=== PATIENT | female | born 1965 ===

== ENCOUNTER 2018-10-08 13:43 | Emergency (ER) | payer SELFPAY ==
[2018-10-08 13:54] VITALS: BP 145/67; PULSE 64; RESP 18; TEMP 97.7; O2SAT 97; BMI 24.0
[2018-10-08] MEDS ORDERED: Tdap Vaccine 0.5 ml Vial (10-64 yrs) IM ONE (14:15)
--- NOTE | 2018-10-08 14:21 | ED PDOC ---
HPI: Trauma/Fall - HPI Time Seen by Provider: 10/08/18 14:15 Chief Complaint (Nursing): Trauma Chief Complaint (Provider): Facial Injury History Per: Patient History/Exam Limitations: no limitations Injury Occurred (Timing): Hours Ago: (x1) Additional Complaint(s): 53 year old female presents to the ED for evaluation of moderate pain and swelling to her face after a rubber resistance band hit her face while working out one hour prior to arrival. Patient denies any loss of consciousness, anticoagulant use, and states she is unsure of her last tetanus booster. PMD: cannot recall Past Medical History Reviewed: Historical Data, Nursing Documentation, Vital Signs Vital Signs: Last Vital Signs Temp 97.7 F 10/08/18 13:53 Pulse 64 10/08/18 13:53 Resp 18 10/08/18 13:53 BP 145/67 10/08/18 13:53 Pulse Ox 97 10/08/18 13:53 - Medical History PMH: Hypercholesterolemia Other PMH: thyroid illness - Surgical History Surgical History: Tonsillectomy - Family History Family History: States: Unknown Family Hx - Social History Current smoker - smoking cessation education provided: No Alcohol: None Drugs: Denies - Immunization History Hx Tetanus Toxoid Vaccination: No (will update this visit) - Home Medications Home Medications: Ambulatory Orders Medication Instructions Recorded RX: Naproxen 375 mg PO Q8 PRN #21 tablet 10/08/18 RX: Pseudoephedrine [Sudafed Tab] 60 mg PO Q6 PRN #12 tab 10/08/18 - Allergies Allergies/Adverse Reactions: Allergies Allergy/AdvReac Type Severity Reaction Status Date / Time No Known Allergies Allergy Verified 10/08/18 14:06 Review of Systems ROS Statement: Except As Marked, All Systems Reviewed And Found Negative ENT: Positive for: Other (facial pain and swelling) Neurological: Negative for: Other (loss of consciousness) Physical Exam - Reviewed Nursing Documentation Reviewed: Yes Vital Signs Reviewed: Yes - Physical Exam Appears: Positive for: No Acute Distress Head Exam: Positive for: ATRAUMATIC, NORMAL INSPECTION, NORMOCEPHALIC Skin: Positive for: Normal Color, Warm Eye Exam: Positive for: Normal appearance, EOMI, PERRL ENT: Positive for: Other (4mm abrasion noted to nasal bridge with moderate swelling of nose involving left maxillary region of face; no septal hematoma noted) Neck: Positive for: Normal, Painless ROM Cardiovascular/Chest: Positive for: Regular Rate, Rhythm Respiratory: Positive for: Normal Breath Sounds. Negative for: Respiratory Distress Neurologic/Psych: Positive for: Alert, Oriented (x3). Negative for: Motor/Sensory Deficits - ECG O2 Sat by Pulse Oximetry: 97 (RA) Pulse Ox Interpretation: Normal - Progress ED Course And Treament: IMPRESSION: 1. Mild diastasis of the right nasal maxillary suture is appreciate without definitive nasal bone fracture identified. Bilateral nasal soft tissue edema seen anteriorly, right greater than left extending into the medial bilateral periorbital soft tissues somewhat. Orbits are otherwise unremarkable appearing. 2. Facial bones are otherwise unremarkable as well as local soft tissues. D/W FAMILY. F/U WITH DR. SORENSEN GIVEN. ADVISED ICE AND ANTI INFLAMMATORY FOR PAIN CONTROL. Medical Decision Making Medical Decision Making: Time: 1414 Initial Impression: facial injury Initial Plan: --CT orbits/facials w/o contrast --Tetanus booster --Tylenol 975mg PO CT FINDINGS: NASAL BONES: There is mild diastasis of the right nasal maxillary suture without definitive fracture of the nasal bones appreciated bilaterally. Limited diffuse overlying soft tissue edema is seen bilaterally. ORBITS: Normal fracture appreciated. Limited bilateral medial periorbital soft tissue edema is seen at the level of the nasal bridge, right greater than left. No postseptal edema. The orbits otherwise unremarkable appearing. PARANASAL SINUSES/ MASTOIDS: Clear. MAXILLA: Unremarkable. MANDIBLE/ TEMPOROMANDIBULAR JOINTS: Unremarkable. SKULL BASE: Unremarkable. TEMPORAL BONES: Middle ears and mastoid grossly unremarkable. OTHER FINDINGS: Shotty incidental bilateral submandibular and submental lymph nodes are identified as well as the bilateral jugular digastric distributions in the upper neck. IMPRESSION: 1. Mild diastasis of the right nasal maxillary suture is appreciate without definitive nasal bone fracture identified. Bilateral nasal soft tissue edema seen anteriorly, right greater than left extending into the medial bilateral periorbital soft tissues somewhat. Orbits are otherwise unremarkable appearing. 2. Facial bones are otherwise unremarkable as well as local soft tissues. Scribe Attestation: Documented by Hannah Camejo, acting as a scribe for Jolene Burton PA-C. Provider Scribe Attestation: All medical record entries made by the Scribe were at my direction and personally dictated by me. I have reviewed the chart and agree that the record accurately reflects my personal performance of the history, physical exam, medical decision making, and the department course for this patient. I have also personally directed, reviewed, and agree with the discharge instructions and disposition. Disposition - Clinical Impression Clinical Impression: Nasal injury - Patient ED Disposition Is Patient to be Admitted: No - Disposition Referrals: Chito Sorensen MD [Staff Provider] - Disposition: Routine/Home Disposition Time: 16:03 Condition: FAIR Prescriptions: RX: Naproxen 375 mg PO Q8 PRN #21 tablet PRN Reason: Pain, Moderate (4-7) RX: Pseudoephedrine [Sudafed Tab] 60 mg PO Q6 PRN #12 tab PRN Reason: Nasal Congestion Instructions: Contusion (DC) Forms: [facility] ED School/Work Excuse
--- NOTE | 2018-10-08 15:30 | CT ---
Date of service: 10/08/2018 PROCEDURE: CT MAXILLOFACIAL BONES WITHOUT CONTRAST HISTORY: r/o facial fx COMPARISON: None available. TECHNIQUE: Contiguous axial CT images of the maxillofacial bones were obtained. Coronal and sagittal reformats were generated. Radiation dose: Total exam DLP = 793.07 mGy-cm. This CT exam was performed using one or more of the following dose reduction techniques: Automated exposure control, adjustment of the mA and/or kV according to patient size, and/or use of iterative reconstruction technique. FINDINGS: NASAL BONES: There is mild diastasis of the right nasal maxillary suture without definitive fracture of the nasal bones appreciated bilaterally. Limited diffuse overlying soft tissue edema is seen bilaterally. ORBITS: Normal fracture appreciated. Limited bilateral medial periorbital soft tissue edema is seen at the level of the nasal bridge, right greater than left. No postseptal edema. The orbits otherwise unremarkable appearing. PARANASAL SINUSES/ MASTOIDS: Clear. MAXILLA: Unremarkable. MANDIBLE/ TEMPOROMANDIBULAR JOINTS: Unremarkable. SKULL BASE: Unremarkable. TEMPORAL BONES: Middle ears and mastoid grossly unremarkable. OTHER FINDINGS: Shotty incidental bilateral submandibular and submental lymph nodes are identified as well as the bilateral jugular digastric distributions in the upper neck. IMPRESSION: 1. Mild diastasis of the right nasal maxillary suture is appreciate without definitive nasal bone fracture identified. Bilateral nasal soft tissue edema seen anteriorly, right greater than left extending into the medial bilateral periorbital soft tissues somewhat. Orbits are otherwise unremarkable appearing. 2. Facial bones are otherwise unremarkable as well as local soft tissues.
== END 2018-10-08 16:15 | disposition home or self-care (01) ==
LOC: H.ER 13:43
DX: S09.92XA Unspecified injury of nose, initial encounter (principal); W22.8XXA Striking against or struck by other objects, initial encounter; Y99.0 Civilian activity done for income or pay; E78.00 Pure hypercholesterolemia, unspecified